=== PATIENT | male | born 1935 | race African-American/Black ===

== ENCOUNTER 2021-09-11 13:04 | Inpatient (IN) | payer MEDICARE, OTHER ==
[~2021-09-11] VITALS: Ht 185.4 cm; Wt 72.6 kg
[~2021-09-11 13:04] MED LIST: ATOR40TA70 MT; DILT360T13 MT; DONE5TAB26 MT; DOXA4TAB3 PO; FURO-151 MT; INSU100I19 SQ; LATA2.5D14 EACHEYE; LISI40TA13 MT; MEMA10TA55 MT; METO-539 PO; NATE120T MT; POTA10CA42 MT; XAR15 PO
[2021-09-11 14:59] LABS: BASOPHILS % 0.2 % (0.0-2.0); EOSINOPHILS % 0.5 % (0.0-5.0); HEMATOCRIT. 34.4 % (42.0-52.0); HEMOGLOBIN. 11.2 g/dL (14.0-18.0); MEAN CORPUSCULAR HEMOGLOBIN 30.7 pg (28.0-32.0); MEAN CORPUSCULAR VOLUME 94.6 fL (80.0-94.0); MEAN PLATELET VOLUME 9.3 fl (7.4-10.4); MONOCYTES % 9.6 % (2.0-8.0); NEUTROPHILS % 75.7 % (40.0-76.0); PLATELET 146 x1000/uL (130-400); RED BLOOD CELL COUNT 3.64 mill/uL (4.7-6.1)
[2021-09-11 15:02] LABS: CHLORIDE 110 mEq/L (98-107)
[2021-09-11] MEDS ORDERED: SODIUM CHLORIDE 0.9% 1,000 ML IV ONE (17:30)
[2021-09-12] VITALS (7 sets, daily range): BP systolic 140–147; BP diastolic 63–78
[2021-09-12] MEDS ORDERED: ENOXAPARIN 40MG/0.4ML SYR SUBCUT SCH (02:30)
[2021-09-12] MEDS ORDERED: ONDANSETRON HCL 4MG/2ML INJ IV PRN (02:30)
[2021-09-12] MEDS: SODIUM CHLORIDE 0.9% 1,000 ML IV SCH ×2 (02:30→15:23)
[2021-09-12] MEDS ORDERED: ACETAMINOPHEN 325MG TABLET PO PRN (02:30)
[2021-09-12] MEDS ORDERED: DOCUSATE SODIUM 100MG CAPSULE PO PRN (02:30)
[2021-09-12] MEDS ORDERED: MAGNESIUM/ALUMINUM HYDROXIDE/SIMETHICONE 30ML UDC PO PRN (02:30)
[2021-09-12 06:32] LABS: INR 1.3; PROTHROMBIN TIME 13.9 sec (9.6-11.0)
[2021-09-12] MEDS ORDERED: ENOXAPARIN 80MG/0.8ML SYR SUBCUT SCH (07:00)
[2021-09-12] MEDS ORDERED: ENOXAPARIN 30MG/0.3ML SYR SUBCUT SCH (09:00)
[2021-09-12 10:18] LABS: HEMATOCRIT. 32.4 % (42.0-52.0); HEMOGLOBIN. 10.6 g/dL (14.0-18.0); MEAN CORPUSCULAR HEMOGLOBIN 31.3 pg (28.0-32.0); MEAN CORPUSCULAR VOLUME 95.3 fL (80.0-94.0); MEAN PLATELET VOLUME 9.7 fl (7.4-10.4); PLATELET 126 x1000/uL (130-400); RED CELL DISTRIBUTION WIDTH 15.3 % (11.6-14.6)
[2021-09-12] MEDS: ASPIRIN 81MG EC TABLET PO SCH (11:01)
[2021-09-12 11:53] LABS: CHLORIDE 116 mEq/L (98-107)
[2021-09-12] MEDS: DONEPEZIL HCL 5MG TABLET PO SCH (13:20)
[2021-09-12] MEDS: MEMANTINE HCL 10MG TABLET PO SCH (17:38)
[2021-09-12 18:09] LABS: CLARITY URINE CLEAR (CLEAR); COLOR URINE YELLOW (YELLOW); KETONES URINE 1+ (NEGATIVE); LEUKOCYTE ESTERASE URINE NEGATIVE (NEGATIVE); NITRITE URINE NEGATIVE (NEGATIVE); OCCULT BLOOD URINE NEGATIVE (NEGATIVE); PROTEIN URINE TRACE (NEGATIVE); SPECIFIC GRAVITY URINE 1.017 (1.005-1.030); UROBILINOGEN URINE 0.2 E.U./dL (0.2-1.0)
[2021-09-12 20:57] LABS: PLATELET ESTIMATE NORMAL
[2021-09-12] MEDS: ATORVASTATIN CALCIUM 40MG TABLET PO SCH (21:38)
[2021-09-12] MEDS: LATANOPROST 0.005% OPHTH DROPS 2.5ML EACHEYE SCH (21:39)
[2021-09-12] MEDS: DOXAZOSIN MESYLATE 4MG TABLET PO SCH (21:39)
[2021-09-12] MEDS: INSULIN GLARGINE UD 100 UNITS/ML SYR SUBCUT SCH (21:40)
[2021-09-13] VITALS: BP 160/81
[2021-09-13 04:00] VITALS: BP 156/69
[2021-09-13] MEDS: SODIUM CHLORIDE 0.9% 1,000 ML IV SCH (04:12)
[2021-09-13 06:27] LABS: HEMATOCRIT. 27.9 % (42.0-52.0); HEMOGLOBIN. 9.6 g/dL (14.0-18.0); MEAN CORPUSCULAR HEMOGLOBIN 32.1 pg (28.0-32.0); MEAN CORPUSCULAR VOLUME 93.2 fL (80.0-94.0); MEAN PLATELET VOLUME 9.3 fl (7.4-10.4); PLATELET 119 x1000/uL (130-400); RED BLOOD CELL COUNT 2.99 mill/uL (4.7-6.1)
[2021-09-13 06:44] LABS: CHLORIDE 117 mEq/L (98-107)
[2021-09-13 06:55] LABS: PHOSPHORUS 3.1 mg/dL (2.5-4.9)
[2021-09-13 06:56] LABS: LDL CHOLESTEROL 107 mg/dL (5-100)
[2021-09-13 06:58] LABS: HDL CHOLESTEROL 39 mg/dL (40-59)
[2021-09-13 08:00] VITALS: BP 144/78
[2021-09-13] MEDS: DONEPEZIL HCL 5MG TABLET PO SCH (10:07)
[2021-09-13] MEDS: ASPIRIN 81MG EC TABLET PO SCH (10:07)
[2021-09-13] MEDS: MEMANTINE HCL 10MG TABLET PO SCH ×2 (10:07→16:10)
[2021-09-13 12:00] VITALS: BP 160/78
[2021-09-13] MEDS: SODIUM CHLORIDE 0.45% 1,000 ML IV SCH (12:21)
[2021-09-13] MEDS: BACITRACIN 15GM TUBE TOP SCH (12:32)
[2021-09-13 16:00] VITALS: BP 160/86
[2021-09-13] MEDS: RIVAROXABAN 15 MG TABLET PO SCH (16:11)
[2021-09-13 19:11] LABS: PLATELET ESTIMATE SLIGHTLY DECREASED
[2021-09-13 20:00] VITALS: BP 146/78
[2021-09-13] MEDS: ATORVASTATIN CALCIUM 40MG TABLET PO SCH (20:52)
[2021-09-13] MEDS: LATANOPROST 0.005% OPHTH DROPS 2.5ML EACHEYE SCH (20:52)
[2021-09-13] MEDS: DOXAZOSIN MESYLATE 4MG TABLET PO SCH (20:52)
[2021-09-13] MEDS: INSULIN GLARGINE UD 100 UNITS/ML SYR SUBCUT SCH (21:59)
[2021-09-14] VITALS: BP 149/70
[2021-09-14] MEDS: SODIUM CHLORIDE 0.45% 1,000 ML IV SCH (06:32)
[2021-09-14 07:00] LABS: HEMATOCRIT. 29.9 % (42.0-52.0); HEMOGLOBIN. 10.3 g/dL (14.0-18.0); MEAN PLATELET VOLUME 9.2 fl (7.4-10.4); PLATELET 116 x1000/uL (130-400); RED BLOOD CELL COUNT 3.21 mill/uL (4.7-6.1); RED CELL DISTRIBUTION WIDTH 14.6 % (11.6-14.6)
[2021-09-14 07:36] LABS: PHOSPHORUS 2.8 mg/dL (2.5-4.9)
[2021-09-14 07:47] LABS: VITAMIN B12 SERUM 1150 pg/mL (211-911)
[2021-09-14 08:00] VITALS: BP 156/70
[2021-09-14] MEDS: DONEPEZIL HCL 5MG TABLET PO SCH (09:36)
[2021-09-14] MEDS: MEMANTINE HCL 10MG TABLET PO SCH ×2 (09:36→16:46)
[2021-09-14] MEDS: BACITRACIN 15GM TUBE TOP SCH (09:36)
[2021-09-14] MEDS: ASPIRIN 81MG EC TABLET PO SCH (09:36)
[2021-09-14 12:00] VITALS: BP 187/77
[2021-09-14] MEDS: HYDRALAZINE 20MG/ML VIAL IV PRN (13:21)
[2021-09-14 13:27] LABS: PLATELET ESTIMATE SLIGHTLY DECREASED
[2021-09-14 15:30] VITALS: BP 128/69
[2021-09-14] MEDS: RIVAROXABAN 15 MG TABLET PO SCH (16:46)
[2021-09-14 20:00] VITALS: BP 108/55
[2021-09-14] MEDS: ATORVASTATIN CALCIUM 40MG TABLET PO SCH (20:40)
[2021-09-14] MEDS: LATANOPROST 0.005% OPHTH DROPS 2.5ML EACHEYE SCH (20:40)
[2021-09-14] MEDS: DOXAZOSIN MESYLATE 4MG TABLET PO SCH (20:40)
[2021-09-14] MEDS ORDERED: INSULIN GLARGINE UD 100 UNITS/ML SYR SUBCUT SCH (22:00)
[2021-09-15] VITALS: BP 130/61
[2021-09-15 04:00] VITALS: BP 143/62
[2021-09-15 07:17] LABS: BASOPHILS % 0.4 % (0.0-2.0); EOSINOPHILS % 1.4 % (0.0-5.0); HEMATOCRIT. 31.1 % (42.0-52.0); HEMOGLOBIN. 10.6 g/dL (14.0-18.0); LYMPHOCYTES % 23.3 % (20.0-50.0); MEAN CORPUSCULAR HEMOGLOBIN 31.5 pg (28.0-32.0); MEAN CORPUSCULAR VOLUME 92.8 fL (80.0-94.0); MEAN PLATELET VOLUME 9.1 fl (7.4-10.4); MONOCYTES % 14.7 % (2.0-8.0); NEUTROPHILS % 60.2 % (40.0-76.0); PLATELET 129 x1000/uL (130-400); RED BLOOD CELL COUNT 3.35 mill/uL (4.7-6.1); RED CELL DISTRIBUTION WIDTH 14.7 % (11.6-14.6)
[2021-09-15 08:00] VITALS: BP 145/78
[2021-09-15] MEDS: DONEPEZIL HCL 5MG TABLET PO SCH (09:05)
[2021-09-15] MEDS: MEMANTINE HCL 10MG TABLET PO SCH ×2 (09:05→17:01)
[2021-09-15] MEDS: ASPIRIN 81MG EC TABLET PO SCH (09:06)
[2021-09-15] MEDS: BACITRACIN 15GM TUBE TOP SCH (09:06)
[2021-09-15 12:00] VITALS: BP 148/77
[2021-09-15 16:00] VITALS: BP 146/78
[2021-09-15] MEDS ORDERED: LACTULOSE 20G/30ML UDC PO NR (16:00)
[2021-09-15] MEDS: RIVAROXABAN 15 MG TABLET PO SCH (17:01)
[2021-09-15] MEDS ORDERED: HYDR-4135 MT (17:17)
[2021-09-15] MEDS ORDERED: METO25TA6 MT (17:17)
[2021-09-15] MEDS ORDERED: DIVA-73 PO (17:17)
[2021-09-15 20:00] VITALS: BP 166/78
[2021-09-15] MEDS: ATORVASTATIN CALCIUM 40MG TABLET PO SCH (21:26)
[2021-09-15] MEDS: DOXAZOSIN MESYLATE 4MG TABLET PO SCH (21:26)
[2021-09-15] MEDS: ZINC SULFATE 220 MG ( 50 ) CAPSULE PO SCH (21:26)
[2021-09-15] MEDS: INSULIN GLARGINE UD 100 UNITS/ML SYR SUBCUT SCH (21:27)
[2021-09-15] MEDS: LATANOPROST 0.005% OPHTH DROPS 2.5ML EACHEYE SCH (21:28)
[2021-09-16] VITALS (7 sets, daily range): BP systolic 112–163; BP diastolic 65–75
[2021-09-16 06:32] LABS: BASOPHILS % 0.5 % (0.0-2.0); EOSINOPHILS % 0.6 % (0.0-5.0); HEMATOCRIT. 31.3 % (42.0-52.0); HEMOGLOBIN. 10.8 g/dL (14.0-18.0); LYMPHOCYTES % 14.9 % (20.0-50.0); MEAN CORPUSCULAR HEMOGLOBIN 32.1 pg (28.0-32.0); MEAN CORPUSCULAR VOLUME 92.8 fL (80.0-94.0); MONOCYTES % 11.3 % (2.0-8.0); NEUTROPHILS % 72.7 % (40.0-76.0); PLATELET 126 x1000/uL (130-400); RED BLOOD CELL COUNT 3.37 mill/uL (4.7-6.1); RED CELL DISTRIBUTION WIDTH 14.6 % (11.6-14.6)
[2021-09-16 06:39] LABS: PHOSPHORUS 3.4 mg/dL (2.5-4.9)
[2021-09-16] MEDS: ASCORBIC ACID 500 MG TABLET PO SCH (09:20)
[2021-09-16] MEDS: ASPIRIN 81MG EC TABLET PO SCH (09:20)
[2021-09-16] MEDS: ZINC SULFATE 220 MG ( 50 ) CAPSULE PO SCH (09:20)
[2021-09-16] MEDS: MULTIVITAMINS,THER W-MINERALS TABLET PO SCH (09:20)
[2021-09-16] MEDS: DONEPEZIL HCL 5MG TABLET PO SCH (09:20)
[2021-09-16] MEDS: MEMANTINE HCL 10MG TABLET PO SCH ×2 (09:21→17:09)
[2021-09-16] MEDS: BACITRACIN 15GM TUBE TOP SCH (09:22)
[2021-09-16] MEDS: HYDRALAZINE 20MG/ML VIAL IV PRN ×2 (13:11→20:19)
[2021-09-16] MEDS: RIVAROXABAN 15 MG TABLET PO SCH (17:09)
[2021-09-16] MEDS: DOXAZOSIN MESYLATE 4MG TABLET PO SCH (20:19)
[2021-09-16] MEDS: ATORVASTATIN CALCIUM 40MG TABLET PO SCH (20:21)
[2021-09-16] MEDS: LATANOPROST 0.005% OPHTH DROPS 2.5ML EACHEYE SCH (20:21)
[2021-09-16] MEDS: INSULIN GLARGINE UD 100 UNITS/ML SYR SUBCUT SCH (22:33)
[2021-09-17 04:00] VITALS: BP 172/85
[2021-09-17] MEDS: HYDRALAZINE 20MG/ML VIAL IV PRN (04:41)
[2021-09-17 08:00] VITALS: BP 178/70
[2021-09-17] MEDS: ASCORBIC ACID 500 MG TABLET PO SCH (08:44)
[2021-09-17] MEDS: AMLODIPINE 5MG TABLET PO SCH (08:44)
[2021-09-17] MEDS: ASPIRIN 81MG EC TABLET PO SCH (08:44)
[2021-09-17] MEDS: MULTIVITAMINS,THER W-MINERALS TABLET PO SCH (08:44)
[2021-09-17] MEDS: DONEPEZIL HCL 5MG TABLET PO SCH (08:44)
[2021-09-17] MEDS: ZINC SULFATE 220 MG ( 50 ) CAPSULE PO SCH (08:44)
[2021-09-17] MEDS: BACITRACIN 15GM TUBE TOP SCH (08:45)
[2021-09-17] MEDS: MEMANTINE HCL 10MG TABLET PO SCH ×2 (08:47→17:49)
[2021-09-17 12:00] VITALS: BP 146/66
[2021-09-17 13:24] LABS: BASOPHILS % 0.3 % (0.0-2.0); EOSINOPHILS % 1.2 % (0.0-5.0); HEMOGLOBIN. 10.3 g/dL (14.0-18.0); LYMPHOCYTES % 16.2 % (20.0-50.0); MEAN CORPUSCULAR HEMOGLOBIN 30.9 pg (28.0-32.0); MEAN PLATELET VOLUME 8.8 fl (7.4-10.4); MONOCYTES % 11.6 % (2.0-8.0); NEUTROPHILS % 70.7 % (40.0-76.0); PLATELET 138 x1000/uL (130-400); RED BLOOD CELL COUNT 3.33 mill/uL (4.7-6.1); RED CELL DISTRIBUTION WIDTH 14.8 % (11.6-14.6)
[2021-09-17 13:50] LABS: CHLORIDE 113 mEq/L (98-107)
[2021-09-17 16:00] VITALS: BP 145/82
[2021-09-17] MEDS: RIVAROXABAN 15 MG TABLET PO SCH (17:49)
[2021-09-17 20:00] VITALS: BP 114/66
[2021-09-17] MEDS: ATORVASTATIN CALCIUM 40MG TABLET PO SCH (20:48)
[2021-09-17] MEDS: LATANOPROST 0.005% OPHTH DROPS 2.5ML EACHEYE SCH (20:48)
[2021-09-17] MEDS: DOXAZOSIN MESYLATE 4MG TABLET PO SCH (20:49)
[2021-09-17] MEDS: INSULIN GLARGINE UD 100 UNITS/ML SYR SUBCUT SCH (21:51)
[2021-09-18] VITALS: BP 148/66
[2021-09-18 04:00] VITALS: BP 147/82
[2021-09-18 06:46] LABS: HEMATOCRIT. 32.9 % (42.0-52.0); MEAN CORPUSCULAR HEMOGLOBIN 31.2 pg (28.0-32.0); MEAN CORPUSCULAR VOLUME 93.5 fL (80.0-94.0); MEAN PLATELET VOLUME 8.7 fl (7.4-10.4); PLATELET 145 x1000/uL (130-400); RED BLOOD CELL COUNT 3.51 mill/uL (4.7-6.1); RED CELL DISTRIBUTION WIDTH 14.9 % (11.6-14.6)
[2021-09-18 07:16] LABS: CHLORIDE 116 mEq/L (98-107)
[2021-09-18 07:30] LABS: PHOSPHORUS 3.3 mg/dL (2.5-4.9)
[2021-09-18 08:00] VITALS: BP 108/67
[2021-09-18] MEDS: ASCORBIC ACID 500 MG TABLET PO SCH (09:58)
[2021-09-18] MEDS: DONEPEZIL HCL 5MG TABLET PO SCH (09:58)
[2021-09-18] MEDS: AMLODIPINE 5MG TABLET PO SCH (09:58)
[2021-09-18] MEDS: ASPIRIN 81MG EC TABLET PO SCH (09:58)
[2021-09-18] MEDS: MULTIVITAMINS,THER W-MINERALS TABLET PO SCH (09:58)
[2021-09-18] MEDS: ZINC SULFATE 220 MG ( 50 ) CAPSULE PO SCH (09:58)
[2021-09-18] MEDS: MEMANTINE HCL 10MG TABLET PO SCH (10:02)
[2021-09-18] MEDS: BACITRACIN 15GM TUBE TOP SCH (10:03)
[2021-09-18 11:49] VITALS: BP 108/67
[2021-09-18 12:00] VITALS: BP 131/69
[2021-09-18 12:13] LABS: PLATELET ESTIMATE NORMAL
== END 2021-09-18 13:12 | DRG 682 ==
LOC: ER 13:04 → EDBEDREQTM 19:59 → EDBEDREQ 19:59 → MICUSO 23:52 → 8WST 09-12 09:38
PROVIDERS: ADMIT Hospitalist; ATTEND Hospitalist
DX: I12.9 Hypertensive chronic kidney disease with stage 1 through stage 4 chronic kidney disease, or unspecified chronic kidney disease (principal); N17.0 Acute kidney failure with tubular necrosis; E44.0 Moderate protein-calorie malnutrition; I82.511 Chronic embolism and thrombosis of right femoral vein; D68.59 Other primary thrombophilia; N18.4 Chronic kidney disease, stage 4 (severe); E11.42 Type 2 diabetes mellitus with diabetic polyneuropathy; E11.22 Type 2 diabetes mellitus with diabetic chronic kidney disease; D63.8 Anemia in other chronic diseases classified elsewhere; D47.2 Monoclonal gammopathy; E78.5 Hyperlipidemia, unspecified; I48.0 Paroxysmal atrial fibrillation; E78.00 Pure hypercholesterolemia, unspecified; S81.812A Laceration without foreign body, left lower leg, initial encounter; X58.XXXA Exposure to other specified factors, initial encounter; S80.812A Abrasion, left lower leg, initial encounter; S80.811A Abrasion, right lower leg, initial encounter; L89.156 Pressure-induced deep tissue damage of sacral region; Z20.822 Contact with and (suspected) exposure to COVID-19; E11.649 Type 2 diabetes mellitus with hypoglycemia without coma; F02.80 Dementia in other diseases classified elsewhere, unspecified severity, without behavioral disturbance, psychotic disturbance, mood disturbance, and anxiety; G30.9 Alzheimer's disease, unspecified; Z86.73 Personal history of transient ischemic attack (TIA), and cerebral infarction without residual deficits; Z83.3 Family history of diabetes mellitus; Z82.49 Family history of ischemic heart disease and other diseases of the circulatory system; Z87.81 Personal history of (healed) traumatic fracture; Z91.041 Radiographic dye allergy status; Z91.013 Allergy to seafood; Z79.899 Other long term (current) drug therapy; Z79.4 Long term (current) use of insulin; Z68.21 Body mass index [BMI] 21.0-21.9, adult; Y93.89 Activity, other specified; Y92.89 Other specified places as the place of occurrence of the external cause; Y99.8 Other external cause status; R62.7 Adult failure to thrive
CPT/HCPCS: 36415; 71045; 76770; 80048; 80053; 80061; 81003; 82040; 82607; 82962; 83735; 84100; 84134; 84443; 84484; 85025; 87426; 93970; 97161; 99285; J0360; J1650; J1815; J7030